=== PATIENT | male | born 1965 | race Caucasian/White ===

== ENCOUNTER 2018-05-26 05:30 | Day surgery (SDC) | payer MEDICARE, MEDICAID ==
[2018-05-24 16:00] LABS: BASOPHILS % (AUTO) 0.4 % (0-1); EOSINOPHILS # (AUTO) 0.2 X10'3 (0-0.9); EOSINOPHILS % (AUTO) 3.2 % (0-6); LYMPHOCYTES # (AUTO) 2.2 X10'3 (1.1-4.8); LYMPHOCYTES % (AUTO) 42.6 % (21-51); MEAN CORPUSCULAR HEMOGLOBIN 32.7 PG (27.0-31.0); MEAN CORPUSCULAR HGB CONC 34.1 % (33.0-36.5); MEAN CORPUSCULAR VOLUME 95.8 FL (78-98); MEAN PLATELET VOLUME 6.6 FL (7.4-10.4); MONOCYTES # (AUTO) 0.5 X10'3 (0-0.9); MONOCYTES % (AUTO) 9.5 % (2-12); NEUTROPHILS # (AUTO) 2.2 X10'3 (1.8-7.7); NEUTROPHILS % (AUTO) 44.3 % (42-75); PRE OP HEMATOCRIT 37.1 % (42.0-52.0); PRE OP HEMOGLOBIN 12.6 g/dL (14.0-17.9); PRE OP PLATELET COUNT 223 X10'3 (140-440); RED BLOOD COUNT 3.87 X10'6 (4.70-6.10); RED CELL DISTRIBUTION WIDTH 13.4 % (11.5-14.5)
[2018-05-24 16:15] LABS: ALBUMIN 3.9 G/DL (3.4-5.0); ALKALINE PHOSPHATASE 111 IU/L (46-116); BLOOD UREA NITROGEN 44 MG/DL (7-18); BUN/CREATININE RATIO 5.8 (5.4-32.0); CALCIUM 9.1 MG/DL (8.5-10.1); CHLORIDE 101 MMOL/L (99-107); CREATININE 7.55 MG/DL (0.60-1.10); PRE OP ALT 22 U/L (30-65); PRE OP ANION GAP 7 (8-16); PRE OP AST 12 U/L (10-37); PRE OP BILIRUB, TOTAL 0.3 MG/DL (0.0-1.0); PRE OP GLUCOSE 99 MG/DL (70-104); PRE OP POTASSIUM 4.6 MMOL/L (3.4-5.1); PRE OP SODIUM 138 MMOL/L (135-145); TOTAL CARBON DIOXIDE 29.7 MMOL/L (24-32); TOTAL PROTEIN 7.9 G/DL (6.4-8.2); eGFR 8 ML/MIN
[~2018-05-26] VITALS: Ht 170.2 cm; Wt 86.3 kg
[~2018-05-26 05:30] MED LIST: CALC667C5 PO; FA/V1TAB PO; FURO-150 PO; HYDR-3973 PO; HYDR-4069 PO; LIPA1CAP18 PO; LOSA50TA21 PO; OMEP20TA5 PO; ONDA4TAB9 SL; PRAM0.5T12 PO; SERT25TA PO; SODI650T29 PO; famotidine 20mg tablet PO ONE; normal saline 500ml IV soln 500 ML IV SCH
[2018-05-26] MEDS ORDERED: BUPIVAcaine/PF 2.5mg/ml (0.25%) 10ml vial ONE (06:26)
[2018-05-26] MEDS ORDERED: LIDOcaine 1% (10mg/ml) 2ml vial ONE (06:54)
[2018-05-26] MEDS ORDERED: cloNIDine hcl/PF 100mcg/ml inj ONE (07:05)
[2018-05-26] MEDS ORDERED: ROPIVAcaine 0.5% (5mg/ml) 30ml vial ONE (07:05)
[2018-05-26] MEDS ORDERED: dexamethasone sod phosphate 4mg/ml inj. ONE (07:10)
[2018-05-26] MEDS ORDERED: LIDOcaine 2% (20mg/ml) 5ml vial ONE (07:10)
[2018-05-26] MEDS ORDERED: propofol inj 20 ML IV ONE ×2 (07:10→07:46)
[2018-05-26] MEDS ORDERED: midazolam 2 mg/2 ml injection ONE (07:10)
[2018-05-26] MEDS ORDERED: fentaNYL/PF 50MCG/1 ML 2ML syringe ONE ×3 (07:10→08:48)
[2018-05-26] MEDS ORDERED: sevoflurane 250ml liquid IH ONE (07:14)
[2018-05-26] MEDS ORDERED: cefazolin/dext.iso 2gm/100 ML IV ONE (07:15)
[2018-05-26] MEDS ORDERED: ondansetron/PF 4mg/2ml inj IV PRN (07:20)
[2018-05-26] MEDS ORDERED: fentaNYL/PF 50MCG/1 ML 2ML syringe IV PRN ×2 (07:20)
[2018-05-26] MEDS ORDERED: enalaprilat dihydrate 2.5mg/2ml vial IV PRN (07:20)
[2018-05-26] MEDS ORDERED: hydrALAZINE 20mg/ml inj. IV PRN (07:20)
[2018-05-26] MEDS ORDERED: ringers solution, lacted 1,000 ML IV SCH (07:20)
[2018-05-26] MEDS ORDERED: morphine 4 MG/ML inj SYRINge IV PRN ×2 (07:20)
[2018-05-26] MEDS ORDERED: ondansetron/PF 4mg/2ml inj ONE (07:45)
[2018-05-26 07:55] VITALS: BP 117/66
[2018-05-26 07:58] VITALS: BP 117/66
[2018-05-26] MEDS ORDERED: hydrALAZINE 20mg/ml inj. IV ONE (08:21)
[2018-05-26] MEDS ORDERED: HYDROcodone/acetaminophen 10/325mg tab PO PRN (09:15)
[2018-05-26 09:18] VITALS: BP 145/67
[2018-05-26] MEDS ORDERED: proCHLORperazine 10 MG/2 ml inj IM ONE (09:25)
[2018-05-26 09:27] VITALS: BP 145/67
[2018-05-26 09:28] VITALS: BP 144/62
[2018-05-26 09:38] VITALS: BP 136/65
[2018-05-26] MEDS ORDERED: MESSAGE TO NURSING IV NR (10:00)
== END 2018-05-26 09:48 | disposition home or self-care (01) ==
LOC: PAS 05:30
PROVIDERS: ATTEND Orthopaedic Surgery
DX: M75.42 Impingement syndrome of left shoulder (principal); M19.012 Primary osteoarthritis, left shoulder; M25.712 Osteophyte, left shoulder; M75.52 Bursitis of left shoulder; I12.9 Hypertensive chronic kidney disease with stage 1 through stage 4 chronic kidney disease, or unspecified chronic kidney disease; N18.9 Chronic kidney disease, unspecified; K21.9 Gastro-esophageal reflux disease without esophagitis; F41.8 Other specified anxiety disorders; G89.29 Other chronic pain; G89.18 Other acute postprocedural pain; Z88.0 Allergy status to penicillin; Z79.891 Long term (current) use of opiate analgesic; Z87.891 Personal history of nicotine dependence; Z79.1 Long term (current) use of non-steroidal anti-inflammatories (NSAID); Z88.6 Allergy status to analgesic agent; Z88.5 Allergy status to narcotic agent; Z86.19 Personal history of other infectious and parasitic diseases; Z90.49 Acquired absence of other specified parts of digestive tract; Z99.2 Dependence on renal dialysis; Z98.890 Other specified postprocedural states; Z79.899 Other long term (current) drug therapy; Z83.42 Family history of familial hypercholesterolemia; Z83.3 Family history of diabetes mellitus; Z82.49 Family history of ischemic heart disease and other diseases of the circulatory system; Z83.1 Family history of other infectious and parasitic diseases; Z80.9 Family history of malignant neoplasm, unspecified
CPT/HCPCS: 29824; 29826; 36415; 64450; 71046; 80053; 85025; 85610; 85730; 93005; A4565; A6449; J0360; J0690; J0735; J0780; J1100; J2001; J2250; J2405; J2704; J2795; J3010; J3490; J7030; J7120; A7000

== ENCOUNTER 2019-01-10 06:37 | Day surgery (SDC) | payer MEDICARE, MEDICAID ==
[~2019-01-10] VITALS: Ht 170.2 cm; Wt 91.9 kg
[~2019-01-10 06:37] MED LIST changes: -LOSA50TA21 PO; +LOSA50TA64 PO; -SODI650T29 PO; -famotidine 20mg tablet PO ONE; -normal saline 500ml IV soln 500 ML IV SCH
[2019-01-10] MEDS ORDERED: normal saline 1000ml 1,000 ML IV PRN (07:00)
[2019-01-10] MEDS ORDERED: WARF5TAB PO (07:05)
[2019-01-10 07:09] VITALS: BP 92/53
[2019-01-10] MEDS ORDERED: PRAM0.5T3 PO (07:11)
[2019-01-10] MEDS ORDERED: DOCU-28 PO (07:11)
[2019-01-10 08:08] LABS: BASOPHILS % (AUTO) 0.5 % (0-1); EOSINOPHILS # (AUTO) 0.2 X10'3 (0-0.9); EOSINOPHILS % (AUTO) 2.7 % (0-6); HEMATOCRIT 36.1 % (42.0-52.0); HEMOGLOBIN 12.1 g/dl (14.0-17.9); LYMPHOCYTES # (AUTO) 1.9 X10'3 (1.1-4.8); LYMPHOCYTES % (AUTO) 30.7 % (21-51); MEAN CORPUSCULAR HEMOGLOBIN 36.1 PG (27.0-31.0); MEAN CORPUSCULAR HGB CONC 33.5 g/dL (33.0-36.5); MEAN PLATELET VOLUME 6.9 FL (7.4-10.4); MONOCYTES # (AUTO) 0.5 X10'3 (0-0.9); MONOCYTES % (AUTO) 8.3 % (2-12); NEUTROPHILS # (AUTO) 3.6 X10'3 (1.8-7.7); NEUTROPHILS % (AUTO) 57.8 % (42-75); PLATELET COUNT 231 X10'3 (140-440); RED BLOOD COUNT 3.34 X10'6 (4.70-6.10); RED CELL DISTRIBUTION WIDTH 18.9 % (11.5-14.5); WHITE BLOOD COUNT 6.3 X10'3 (4.5-11.0)
[2019-01-10 08:17] LABS: ALBUMIN 3.4 G/DL (3.4-5.0); ANION GAP 12 (8-16); BLOOD UREA NITROGEN 68 MG/DL (7-18); CALCIUM 10.3 MG/DL (8.5-10.1); CHLORIDE 100 MMOL/L (99-107); CREATININE 11.35 MG/DL (0.60-1.10); GLUCOSE 88 MG/DL (70-104); POTASSIUM 5.5 MMOL/L (3.5-5.1); SODIUM 138 MMOL/L (135-145); TOTAL CARBON DIOXIDE 25.9 MMOL/L (24-32); eGFR 5 ML/MIN
[2019-01-10] MEDS ORDERED: fentaNYL/PF 50MCG/1 ML 2ML syringe IV PRN (08:20)
[2019-01-10] MEDS ORDERED: heparin 1,000 units/ml 10ml inj ICATH ONE (08:20)
[2019-01-10] MEDS ORDERED: LIDOcaine 1%/PF 5ML 10 MG/ML VIAL SQ ONE (08:20)
[2019-01-10] MEDS ORDERED: LIDOcaine 1%/PF 5ML 10 MG/ML VIAL ONE (08:30)
[2019-01-10] MEDS ORDERED: clindamycin-Cleocin 900mg/D5W 50 ML IV ONE (08:30)
[2019-01-10] MEDS ORDERED: heparin 1,000unit/ml 10ml vial 10 ML ONE (08:34)
[2019-01-10] MEDS ORDERED: clindamycin 600mg/D5W 50ml 50 ML IV ONE (08:34)
[2019-01-10 09:16] VITALS: BP 105/48
[2019-01-10 09:23] LABS: ANISOCYTOSIS 2+; PLATELET ESTIMATE NORMAL
[2019-01-10 09:26] LABS: POLYCHROMASIA FEW
[2019-01-10 09:30] VITALS: BP 99/45
[2019-01-10] MEDS ORDERED: HYDROcodone/acetaminophen 10/325mg tab PO ONE (09:30)
[2019-01-10 09:45] VITALS: BP 92/60
[2019-01-10 10:00] VITALS: BP 96/63
== END 2019-01-10 10:10 | disposition home or self-care (01) ==
LOC: SSTAY O 06:37
PROVIDERS: ATTEND Radiology Diagnostic Radiology
DX: T82.49XA Other complication of vascular dialysis catheter, initial encounter (principal); Y83.8 Other surgical procedures as the cause of abnormal reaction of the patient, or of later complication, without mention of misadventure at the time of the procedure; N18.6 End stage renal disease; Z98.890 Other specified postprocedural states; Z88.0 Allergy status to penicillin; Z88.2 Allergy status to sulfonamides; Z88.8 Allergy status to other drugs, medicaments and biological substances; Z79.899 Other long term (current) drug therapy
CPT/HCPCS: 36415; 36581; 77001; 80048; 85025; 85610; C1750; J1644; J2001; J7030; A9270; C1769; J3490

== ENCOUNTER 2019-06-05 06:49 | Day surgery (SDC) | payer MEDICARE, MEDICAID ==
[~2019-06-05] VITALS: Ht 170.2 cm; Wt 95.3 kg
[~2019-06-05 06:49] MED LIST changes: +DOCU-28 PO; -FURO-150 PO; -HYDR-3973 PO; -HYDR-4069 PO; -LOSA50TA64 PO; -PRAM0.5T12 PO; +PRAM0.5T3 PO; +WARF5TAB PO
[2019-06-05] MEDS ORDERED: CYCL-1 PO (07:27)
[2019-06-05] MEDS ORDERED: FOLI0.4T2 PO (07:27)
[2019-06-05] MEDS ORDERED: diclofenac PO (07:27)
[2019-06-05] MEDS ORDERED: PRAM0.5T12 PO (07:27)
[2019-06-05] MEDS ORDERED: FLO0.1T PO (07:27)
[2019-06-05] MEDS ORDERED: SERT25TA PO (07:27)
[2019-06-05] MEDS ORDERED: CALC668T PEG (07:27)
[2019-06-05] MEDS ORDERED: MIDO10TA PO (07:27)
[2019-06-05] MEDS ORDERED: normal saline 1,000 ML IV SCH (07:35)
[2019-06-05] MEDS ORDERED: clindamycin 600mg/D5W 50ml 50 ML IV ONE (07:35)
[2019-06-05 07:53] VITALS: BP 79/46
[2019-06-05 08:09] LABS: BASOPHILS # (AUTO) 0.1 X10'3 (0-0.2); BASOPHILS % (AUTO) 1.1 % (0-1); EOSINOPHILS # (AUTO) 0.2 X10'3 (0-0.9); EOSINOPHILS % (AUTO) 3.3 % (0-6); HEMATOCRIT 44.4 % (42.0-52.0); HEMOGLOBIN 14.6 g/dl (14.0-17.9); LYMPHOCYTES % (AUTO) 28.1 % (21-51); MEAN CORPUSCULAR HEMOGLOBIN 35.5 PG (27.0-31.0); MEAN CORPUSCULAR HGB CONC 32.9 g/dL (33.0-36.5); MEAN CORPUSCULAR VOLUME 107.8 FL (78-98); MEAN PLATELET VOLUME 6.6 FL (7.4-10.4); MONOCYTES # (AUTO) 0.5 X10'3 (0-0.9); MONOCYTES % (AUTO) 7.7 % (2-12); NEUTROPHILS # (AUTO) 4.2 X10'3 (1.8-7.7); NEUTROPHILS % (AUTO) 59.8 % (42-75); PLATELET COUNT 302 X10'3 (140-440); RED BLOOD COUNT 4.12 X10'6 (4.70-6.10); RED CELL DISTRIBUTION WIDTH 20.1 % (11.5-14.5)
[2019-06-05] MEDS ORDERED: LIDOcaine 1%/PF 5ML 10 MG/ML VIAL ONE (08:13)
[2019-06-05] MEDS ORDERED: fentaNYL/PF 50MCG/1 ML 2ML syringe ONE ×2 (08:13→09:06)
[2019-06-05] MEDS ORDERED: heparin 1,000unit/ml 10ml vial 10 ML ONE (08:13)
[2019-06-05] MEDS ORDERED: midazolam 2 mg/2 ml injection ONE (08:13)
[2019-06-05] MEDS ORDERED: LIDOcaine 1%/PF 5ML 10 MG/ML VIAL SQ ONE (08:15)
[2019-06-05] MEDS ORDERED: fentaNYL/PF 50MCG/1 ML 2ML syringe IV PRN (08:15)
[2019-06-05] MEDS ORDERED: midazolam 2 mg/2 ml injection IV PRN (08:15)
[2019-06-05] MEDS ORDERED: LIDOcaine 1% (10mg/ml) 2ml vial SQ ONE (08:25)
[2019-06-05] MEDS ORDERED: heparin 1,000 units/ml 10ml inj ICATH ONE (08:25)
[2019-06-05] MEDS ORDERED: iohexol 300 MG/1 ML 50ml polymer ONE (09:05)
[2019-06-05 09:15] LABS: ANISOCYTOSIS 3+; PLATELET ESTIMATE NORMAL
[2019-06-05 09:30] VITALS: BP 79/41
[2019-06-05 09:45] VITALS: BP 130/52
[2019-06-05 10:00] VITALS: BP 118/59
[2019-06-05 10:15] VITALS: BP 124/35
== END 2019-06-05 10:30 | disposition home or self-care (01) ==
LOC: SSTAY O 06:49
PROVIDERS: ATTEND Radiology Vascular & Interventional Radiology
DX: T82.49XA Other complication of vascular dialysis catheter, initial encounter (principal); I12.9 Hypertensive chronic kidney disease with stage 1 through stage 4 chronic kidney disease, or unspecified chronic kidney disease; N18.9 Chronic kidney disease, unspecified; F32.9 Major depressive disorder, single episode, unspecified; Z87.891 Personal history of nicotine dependence; Z72.89 Other problems related to lifestyle; Z88.8 Allergy status to other drugs, medicaments and biological substances; Z88.0 Allergy status to penicillin; Z88.5 Allergy status to narcotic agent; Z79.899 Other long term (current) drug therapy; Z83.3 Family history of diabetes mellitus; Y83.8 Other surgical procedures as the cause of abnormal reaction of the patient, or of later complication, without mention of misadventure at the time of the procedure; Y92.89 Other specified places as the place of occurrence of the external cause
CPT/HCPCS: 36581; 37248; 75827; 85025; 99152; C1725; C1750; C1769; J1644; J2250; J3010; J7030; Q9967; J3490

== ENCOUNTER 2020-02-20 12:06 | Day surgery (SDC) | payer MEDICARE, MEDICAID ==
[2020-02-20] VITALS (7 sets, daily range): BP systolic 93–128; BP diastolic 48–66
[~2020-02-20] VITALS: Ht 170.2 cm; Wt 84.8 kg
[~2020-02-20 12:06] MED LIST changes: -CALC667C5 PO; +CALC668T PEG; +CYCL-1 PO; +FLO0.1T PO; +FOLI0.4T2 PO; +MIDO10TA PO; +PRAM0.5T12 PO; -WARF5TAB PO; +diclofenac PO
[2020-02-20] MEDS ORDERED: normal saline 1000ml 1,000 ML IV SCH (12:30)
[2020-02-20] MEDS ORDERED: KAY15L PO (13:32)
[2020-02-20] MEDS ORDERED: ESCI10TA PO (13:32)
[2020-02-20] MEDS ORDERED: LEVO50TA8 PO (13:32)
[2020-02-20] MEDS ORDERED: COU7.5T PO (13:32)
[2020-02-20] MEDS ORDERED: LIDO700A32 TOP (13:32)
[2020-02-20] MEDS ORDERED: heparin 1,000unit/ml 10ml vial 10 ML ONE (14:00)
[2020-02-20] MEDS ORDERED: LIDOcaine 1%/PF 5ML 10 MG/ML VIAL ONE (14:00)
[2020-02-20] MEDS ORDERED: fentaNYL/PF 50MCG/1 ML 2ML syringe ONE (14:11)
== END 2020-02-20 16:25 | disposition home or self-care (01) ==
LOC: SSTAY O 12:06
PROVIDERS: ATTEND Radiology Diagnostic Radiology
DX: N18.9 Chronic kidney disease, unspecified (principal); Z88.5 Allergy status to narcotic agent; Z88.0 Allergy status to penicillin; Z79.899 Other long term (current) drug therapy; Z83.3 Family history of diabetes mellitus; Z83.49 Family history of other endocrine, nutritional and metabolic diseases; Z80.8 Family history of malignant neoplasm of other organs or systems
CPT/HCPCS: 36415; 36556; 76937; 77001; 85610; C1769; C1894; J1644; J3010; A9270

== ENCOUNTER 2020-02-22 13:54 | Emergency (ER) | payer MEDICARE, MEDICAID ==
[~2020-02-22] VITALS: Ht 170.2 cm; Wt 82.7 kg
[~2020-02-22 13:54] MED LIST changes: -CALC668T PEG; +COU7.5T PO; -CYCL-1 PO; +ESCI10TA PO; +KAY15L PO; +LEVO50TA8 PO; +LIDO700A32 TOP; -PRAM0.5T12 PO; -PRAM0.5T3 PO; -SERT25TA PO; -diclofenac PO
[2020-02-22] MEDS ORDERED: HYDROcodone/acetaminophen 5mg/325mg tablet PO ONE (16:25)
[2020-02-22] MEDS ORDERED: OXYC-150 PO (17:44)
[2020-02-22 17:59] VITALS: BP 110/68
== END 2020-02-22 18:03 | disposition home or self-care (01) ==
LOC: ER 13:55
DX: T85.848A Pain due to other internal prosthetic devices, implants and grafts, initial encounter (principal); G89.18 Other acute postprocedural pain; M79.602 Pain in left arm; M25.512 Pain in left shoulder; I10 Essential (primary) hypertension; R07.9 Chest pain, unspecified; Z86.19 Personal history of other infectious and parasitic diseases; Z90.49 Acquired absence of other specified parts of digestive tract; Z88.5 Allergy status to narcotic agent; Z88.0 Allergy status to penicillin; Z79.899 Other long term (current) drug therapy; Z99.2 Dependence on renal dialysis
CPT/HCPCS: 70490; 99284; 99285

== ENCOUNTER 2020-02-27 06:29 | Day surgery (SDC) | payer MEDICARE, MEDICAID ==
[~2020-02-27] VITALS: Ht 170.2 cm; Wt 91.2 kg
[~2020-02-27 06:29] MED LIST changes: +OXYC-150 PO
[2020-02-27] MEDS ORDERED: normal saline 1000ml 1,000 ML IV PRN (06:55)
[2020-02-27 07:18] VITALS: BP 151/81
[2020-02-27] MEDS ORDERED: midazolam 2 mg/2 ml injection ONE ×2 (08:50→09:05)
[2020-02-27] MEDS ORDERED: fentaNYL/PF 50MCG/1 ML 2ML syringe ONE ×3 (08:50→09:23)
[2020-02-27] MEDS ORDERED: LIDOcaine 1%/PF 5ML 10 MG/ML VIAL ONE (08:51)
[2020-02-27] MEDS ORDERED: heparin 1,000unit/ml 10ml vial 10 ML ONE (09:07)
[2020-02-27 10:00] VITALS: BP 124/74
[2020-02-27 10:15] VITALS: BP 105/65
[2020-02-27 10:30] VITALS: BP 103/59
[2020-02-27 10:45] VITALS: BP 90/55
== END 2020-02-27 11:00 | disposition home or self-care (01) ==
LOC: SSTAY O 06:29
PROVIDERS: ATTEND Radiology Diagnostic Radiology
DX: T82.590A Other mechanical complication of surgically created arteriovenous fistula, initial encounter (principal); Z88.0 Allergy status to penicillin; Z88.5 Allergy status to narcotic agent; Z88.8 Allergy status to other drugs, medicaments and biological substances; Z79.899 Other long term (current) drug therapy; Z79.01 Long term (current) use of anticoagulants; Z83.49 Family history of other endocrine, nutritional and metabolic diseases; Z83.3 Family history of diabetes mellitus; Z80.9 Family history of malignant neoplasm, unspecified; Y83.2 Surgical operation with anastomosis, bypass or graft as the cause of abnormal reaction of the patient, or of later complication, without mention of misadventure at the time of the procedure; Y92.89 Other specified places as the place of occurrence of the external cause
CPT/HCPCS: 36415; 36558; 76937; 77001; 85610; 99152; 99153; C1750; C1769; C1894; J1644; J2250; J3010; A9270

== ENCOUNTER → 2020-10-19 | Emergency (ER) | payer MEDICARE, MEDICAID ==
[~2020-10-19] VITALS: Ht 175.3 cm; Wt 86.4 kg
[2020-10-19 15:40] VITALS: BP 185/88
[2020-10-19 16:45] LABS: BASOPHILS # (AUTO) 0.1 X10'3 (0-0.2); EOSINOPHILS % (AUTO) 0 % (0-6); HEMATOCRIT 41.6 % (42.0-52.0); LYMPHOCYTES % (AUTO) 12.1 % (21-51); MEAN CORPUSCULAR HEMOGLOBIN 33.1 PG (27.0-31.0); MEAN CORPUSCULAR HGB CONC 33.7 g/dL (33.0-36.5); MEAN CORPUSCULAR VOLUME 98.1 FL (78-98); MEAN PLATELET VOLUME 7.8 FL (7.4-10.4); MONOCYTES # (AUTO) 0.3 X10'3 (0-0.9); MONOCYTES % (AUTO) 3.2 % (2-12); NEUTROPHILS # (AUTO) 7.2 X10'3 (1.8-7.7); NEUTROPHILS % (AUTO) 83.7 % (42-75); PLATELET COUNT 312 X10'3 (140-440); RED BLOOD COUNT 4.24 X10'6 (4.70-6.10); WHITE BLOOD COUNT 8.7 X10'3 (4.5-11.0)
[2020-10-19 17:05] LABS: ALANINE AMINOTRANSFERASE 19 U/L (12-78); ALBUMIN 4.5 G/DL (3.4-5.0); ALBUMIN/GLOBULIN RATIO 1.1 (1.1-1.5); ALKALINE PHOSPHATASE 101 IU/L (46-116); AMYLASE 178 U/L (25-115); ANION GAP 14 (8-16); ASPARTATE AMINO TRANSFERASE 9 U/L (10-37); BILIRUBIN,TOTAL 0.5 MG/DL (0.1-1.0); BLOOD UREA NITROGEN 60 MG/DL (7-18); BUN/CREATININE RATIO 5.1 (5.4-32.0); CHLORIDE 99 MMOL/L (99-107); GLUCOSE 130 MG/DL (70-104); LIPASE 361 U/L (73-393); POTASSIUM 4.9 MMOL/L (3.5-5.1); SODIUM 138 MMOL/L (135-145); TOTAL CARBON DIOXIDE 24.6 MMOL/L (24-32); TOTAL PROTEIN 8.7 G/DL (6.4-8.2); eGFR 4 ML/MIN
--- NOTE | 2020-10-19 18:13 | NUR ---
PT INFORMS REGISTRATION THAT HE IS LEAVING.
--- NOTE | 2020-10-19 18:59 | NUR ---
Attempted to contact via phone with no success.
--- NOTE | 2020-10-19 19:55 | NUR ---
Attempted to contact via phone with no success.
== END | disposition left against medical advice (07) ==
LOC: ER 15:17
DX: K85.90 Acute pancreatitis without necrosis or infection, unspecified (principal)
CPT/HCPCS: 36415; 80053; 82150; 83690; 85025

== ENCOUNTER 2021-03-18 06:33 | Day surgery (SDC) | payer MEDICARE, MEDICAID ==
[~2021-03-18] VITALS: Ht 175.3 cm; Wt 93.2 kg
[~2021-03-18 06:33] MED LIST changes: -FOLI0.4T2 PO; +FOLI0.4T6 PO
[2021-03-18 07:12] VITALS: BP 101/71
[2021-03-18] MEDS ORDERED: DIAZ5TAB PO (07:18)
[2021-03-18] MEDS ORDERED: elavil PO (07:19)
[2021-03-18 07:53] LABS: BASOPHILS # (AUTO) 0.1 X10'3 (0-0.2); BASOPHILS % (AUTO) 1.1 % (0-1); EOSINOPHILS # (AUTO) 0.2 X10'3 (0-0.9); EOSINOPHILS % (AUTO) 3.3 % (0-6); HEMATOCRIT 39.4 % (42.0-52.0); HEMOGLOBIN 13.2 g/dl (14.0-17.9); LYMPHOCYTES # (AUTO) 1.6 X10'3 (1.1-4.8); LYMPHOCYTES % (AUTO) 27.7 % (21-51); MEAN CORPUSCULAR HEMOGLOBIN 33.8 PG (27.0-31.0); MEAN CORPUSCULAR HGB CONC 33.5 g/dL (33.0-36.5); MEAN PLATELET VOLUME 6.4 FL (7.4-10.4); MONOCYTES # (AUTO) 0.5 X10'3 (0-0.9); MONOCYTES % (AUTO) 8.3 % (2-12); NEUTROPHILS # (AUTO) 3.5 X10'3 (1.8-7.7); NEUTROPHILS % (AUTO) 59.6 % (42-75); PLATELET COUNT 237 X10'3 (140-440); WHITE BLOOD COUNT 5.9 X10'3 (4.5-11.0)
[2021-03-18] MEDS ORDERED: LIDOcaine 1%/PF 5ML 10 MG/ML VIAL ONE ×3 (08:46→14:28)
[2021-03-18] MEDS ORDERED: fentaNYL/PF 50MCG/1 ML 2ML syringe ONE ×3 (08:47→14:23)
[2021-03-18] MEDS ORDERED: midazolam 1 mg/ML 2ml injection ONE ×4 (08:47→14:42)
[2021-03-18] MEDS ORDERED: iohexol 300mg/ml 100ml inj. ONE (08:47)
[2021-03-18] MEDS ORDERED: heparin 1,000 UNITS/NS 500ml 500 ML ONE (08:47)
[2021-03-18 08:55] LABS: ALBUMIN 3.4 G/DL (3.4-5.0); ANION GAP 20 (8-16); BLOOD UREA NITROGEN 85 MG/DL (7-18); BUN/CREATININE RATIO 5.7 (5.4-32.0); CHLORIDE 101 MMOL/L (99-107); GLUCOSE 84 MG/DL (70-104); SODIUM 142 MMOL/L (135-145); TOTAL CARBON DIOXIDE 21.1 MMOL/L (24-32); eGFR 3 ML/MIN
[2021-03-18 09:05] LABS: POTASSIUM 7.4 MMOL/L (3.5-5.1)
[2021-03-18] MEDS ORDERED: dextrose 50%-water 50ml dispensing syringe IV ONE (09:15)
[2021-03-18] MEDS ORDERED: albuterol 2.5 MG/3 ML nebule NEB ONE (09:15)
[2021-03-18] MEDS ORDERED: CALCIUM GLUC 1gm/50ml NACL,iso 50 ML IV ONE (09:15)
[2021-03-18] MEDS ORDERED: insulin regular, human U-100 3ml vial - multi-dose IV ONE (09:15)
[2021-03-18] MEDS ORDERED: sodium bicarbonate (8.4%) 1 mEq/ml syringe IV ONE (09:15)
[2021-03-18] MEDS ORDERED: SODIUM ZIRCONIUM CYCLOSILICATE 10 GM POWD.PACK PO ONE (09:35)
[2021-03-18] MEDS ORDERED: diazepam 5mg tablet PO ONE (10:25)
[2021-03-18] MEDS ORDERED: dextrose 50%-water 50ml dispensing syringe IV PRN ×2 (11:00)
[2021-03-18] MEDS ORDERED: heparin 1,000unit/ml 10ml vial 10 ML ONE (13:42)
[2021-03-18] MEDS ORDERED: ondansetron/PF 4mg/2ml inj ONE (13:53)
[2021-03-18] MEDS ORDERED: iohexol 300 MG/1 ML 50ml polymer ONE (14:14)
[2021-03-18 15:05] VITALS: BP 89/54
[2021-03-18] MEDS ORDERED: normal saline 1000ml 1,000 ML IV SCH (15:05)
[2021-03-18 15:20] VITALS: BP 90/53
[2021-03-18 15:35] VITALS: BP 116/46
[2021-03-18 15:50] VITALS: BP 111/58
--- NOTE | 2021-03-18 16:28 | NUR ---
Pt rec'd protocol treatment for K+ 7.4 prior to procedure-VSS throughout treatment-pt asymptomatic-redraw pending post treatment
[2021-03-19] MEDS ORDERED: SODIUM ZIRCONIUM CYCLOSILICATE 10 GM POWD.PACK PO SCH (08:00)
== END 2021-03-18 16:33 | disposition home or self-care (01) ==
LOC: SSTAY O 06:33
PROVIDERS: ATTEND Radiology Diagnostic Radiology
DX: T82.868A Thrombosis due to vascular prosthetic devices, implants and grafts, initial encounter (principal); N18.6 End stage renal disease; E87.5 Hyperkalemia; F17.210 Nicotine dependence, cigarettes, uncomplicated; F12.90 Cannabis use, unspecified, uncomplicated; Z88.0 Allergy status to penicillin; Z88.5 Allergy status to narcotic agent; Z88.8 Allergy status to other drugs, medicaments and biological substances; Z79.899 Other long term (current) drug therapy; Z79.01 Long term (current) use of anticoagulants; Z99.2 Dependence on renal dialysis; Z90.49 Acquired absence of other specified parts of digestive tract; Z80.8 Family history of malignant neoplasm of other organs or systems; Z83.3 Family history of diabetes mellitus; Z83.49 Family history of other endocrine, nutritional and metabolic diseases; Y83.2 Surgical operation with anastomosis, bypass or graft as the cause of abnormal reaction of the patient, or of later complication, without mention of misadventure at the time of the procedure; Y92.89 Other specified places as the place of occurrence of the external cause
CPT/HCPCS: 36415; 36558; 76937; 77001; 80048; 82948; 84132; 85025; 85610; 94640; 99152; 99153; C1750; C1769; C1894; J1644; J2250; J2405; J3010; Q9967; J1815

== ENCOUNTER 2021-03-23 06:31 | Day surgery (SDC) | payer MEDICARE, MEDICAID ==
[2021-03-23] VITALS (8 sets, daily range): BP systolic 92–131; BP diastolic 55–71
[~2021-03-23] VITALS: Ht 172.7 cm; Wt 94.8 kg
[~2021-03-23 06:31] MED LIST changes: +DIAZ5TAB PO; -DOCU-28 PO; -KAY15L PO; -OXYC-150 PO; +elavil PO
[2021-03-23] MEDS ORDERED: normal saline 1000ml 1,000 ML IV SCH (07:00)
[2021-03-23] MEDS ORDERED: tPA-cathflo 2 MG/2 ml IV flush ONE (08:13)
[2021-03-23 08:28] LABS: ALBUMIN 3.4 G/DL (3.4-5.0); ANION GAP 15 (8-16); BLOOD UREA NITROGEN 72 MG/DL (7-18); BUN/CREATININE RATIO 6.4 (5.4-32.0); CALCIUM 8.4 MG/DL (8.5-10.1); CHLORIDE 101 MMOL/L (99-107); CREATININE 11.24 MG/DL (0.60-1.10); GLUCOSE 87 MG/DL (70-104); SODIUM 135 MMOL/L (135-145); TOTAL CARBON DIOXIDE 19.5 MMOL/L (24-32); eGFR 5 ML/MIN
[2021-03-23 08:29] LABS: POTASSIUM 6.5 MMOL/L (3.5-5.1)
--- NOTE | 2021-03-23 08:30 | NUR ---
Critical result reported to MD, no new orders given.
[2021-03-23 08:37] LABS: BASOPHILS # (AUTO) 0.1 X10'3 (0-0.2); BASOPHILS % (AUTO) 0.9 % (0-1); EOSINOPHILS # (AUTO) 0.3 X10'3 (0-0.9); HEMATOCRIT 38.6 % (42.0-52.0); HEMOGLOBIN 12.6 g/dl (14.0-17.9); LYMPHOCYTES # (AUTO) 1.7 X10'3 (1.1-4.8); LYMPHOCYTES % (AUTO) 24.1 % (21-51); MEAN CORPUSCULAR HEMOGLOBIN 33.6 PG (27.0-31.0); MEAN CORPUSCULAR HGB CONC 32.7 g/dL (33.0-36.5); MEAN PLATELET VOLUME 6.5 FL (7.4-10.4); MONOCYTES # (AUTO) 0.7 X10'3 (0-0.9); MONOCYTES % (AUTO) 10.4 % (2-12); NEUTROPHILS # (AUTO) 4.2 X10'3 (1.8-7.7); NEUTROPHILS % (AUTO) 60.6 % (42-75); PLATELET COUNT 235 X10'3 (140-440); RED BLOOD COUNT 3.75 X10'6 (4.70-6.10); RED CELL DISTRIBUTION WIDTH 17.5 % (11.5-14.5)
[2021-03-23] MEDS ORDERED: LORazepam 0.5 MG tablet PO PRN (08:40)
--- NOTE | 2021-03-23 10:49 | NUR ---
Pt resting comfortably in bed, significant other at bedside.
--- NOTE | 2021-03-23 11:04 | NUR ---
Problems reprioritized. Patient report given, questions answered & plan of care reviewed with Richa NORTH.
[2021-03-23] MEDS ORDERED: fentaNYL/PF 50MCG/1 ML 2ML syringe ONE ×3 (11:13→11:49)
[2021-03-23] MEDS ORDERED: heparin 1,000 UNITS/NS 500ml 500 ML ONE (11:13)
[2021-03-23] MEDS ORDERED: LIDOcaine 1%/PF 5ML 10 MG/ML VIAL ONE (11:13)
[2021-03-23] MEDS ORDERED: iohexol 300mg/ml 100ml inj. ONE (11:13)
[2021-03-23] MEDS ORDERED: midazolam 1 mg/ML 2ml injection ONE ×4 (11:13→12:06)
[2021-03-23] MEDS ORDERED: diphenhydrAMINE 50 mg/ml inj ONE (11:53)
[2021-03-23] MEDS ORDERED: heparin 1,000unit/ml 10ml vial 10 ML ONE (12:03)
== END 2021-03-23 15:55 | disposition home or self-care (01) ==
LOC: SSTAY O 06:31
PROVIDERS: ATTEND Radiology Vascular & Interventional Radiology
DX: T82.868A Thrombosis due to vascular prosthetic devices, implants and grafts, initial encounter (principal); N18.6 End stage renal disease; Z99.2 Dependence on renal dialysis; Z88.0 Allergy status to penicillin; Z88.8 Allergy status to other drugs, medicaments and biological substances; Z88.5 Allergy status to narcotic agent; F17.210 Nicotine dependence, cigarettes, uncomplicated; F12.90 Cannabis use, unspecified, uncomplicated; Z72.89 Other problems related to lifestyle; Z79.899 Other long term (current) drug therapy; Z79.01 Long term (current) use of anticoagulants; Z90.49 Acquired absence of other specified parts of digestive tract; Z83.3 Family history of diabetes mellitus; Z82.49 Family history of ischemic heart disease and other diseases of the circulatory system; Z80.8 Family history of malignant neoplasm of other organs or systems; Y83.2 Surgical operation with anastomosis, bypass or graft as the cause of abnormal reaction of the patient, or of later complication, without mention of misadventure at the time of the procedure; Y92.89 Other specified places as the place of occurrence of the external cause
CPT/HCPCS: 36415; 36905; 80048; 85025; 85610; 99152; 99153; C1725; C1769; C1894; J1200; J1644; J2250; J2997; J3010; Q9967

== ENCOUNTER 2023-01-17 20:52 | Emergency (ER) | payer MEDICARE, MEDICAID ==
[~2023-01-17] VITALS: Ht 175.3 cm; Wt 88.6 kg
[~2023-01-17 20:52] MED LIST changes: +ACET-1015 PO; +ASPI-611 PO; +ATOR40TA PO; -COU7.5T PO; +DIAZ10TA PO; -DIAZ5TAB PO; +DOCU100C40 PO; -FA/V1TAB PO; +FAMO20TA8 PO; -FOLI0.4T6 PO; -LIDO700A32 TOP; +MYCO250C46 PO; +NALO4SPR BOTHNARES; -OMEP20TA5 PO; +ONDA-103 PO; -ONDA4TAB9 SL; +OXYC5CAP19 PO; +POLY17PO10 PO; +SENN-263 PO; +SEVE800T8 PO; +SULF-14 PO; +TACR1CAP2 PO; +TACR1CAP24 PO; +VALG450T13 PO; +WARF-65 PO; -elavil PO
[2023-01-17] MEDS ORDERED: ondansetron 4mg rapidly disintigrating tab PO ONE (22:20)
[2023-01-17] MEDS ORDERED: morphine 10mg/ml inj. IM ONE (22:20)
[2023-01-17 23:00] VITALS: BP 118/67
== END 2023-01-17 23:03 | disposition home or self-care (01) ==
LOC: ER 20:53
DX: G89.29 Other chronic pain (principal); M54.59 Other low back pain; F12.10 Cannabis abuse, uncomplicated; N18.6 End stage renal disease; Z90.49 Acquired absence of other specified parts of digestive tract; Z88.0 Allergy status to penicillin; Z88.8 Allergy status to other drugs, medicaments and biological substances; Z79.899 Other long term (current) drug therapy; Z88.5 Allergy status to narcotic agent; Z79.82 Long term (current) use of aspirin
CPT/HCPCS: 96372; 99283; J2274

== ENCOUNTER 2023-12-13 13:46 | Outpatient (CLI) | payer MEDICARE, MEDICAID ==
[~2023-12-13 13:46] MED LIST changes: +DIAZ-546 PO; -DIAZ10TA PO
[2023-12-13 15:30] LABS: BASOPHILS # (AUTO) 0.1 X10'3 (0-0.2); BASOPHILS % (AUTO) 0.9 % (0-1); EOSINOPHILS % (AUTO) 0.3 % (0-6); LYMPHOCYTES % (AUTO) 12.1 % (21-51); MEAN CORPUSCULAR HEMOGLOBIN 31.2 PG (27.0-31.0); MEAN CORPUSCULAR HGB CONC 32.8 g/dL (33.0-36.5); MEAN CORPUSCULAR VOLUME 95.2 FL (78-98); MEAN PLATELET VOLUME 6.5 FL (7.4-10.4); MONOCYTES # (AUTO) 0.6 X10'3 (0-0.9); NEUTROPHILS # (AUTO) 6.6 X10'3 (1.8-7.7); NEUTROPHILS % (AUTO) 79.7 % (42-75); PRE OP HEMATOCRIT 34.3 % (42.0-52.0); PRE OP HEMOGLOBIN 11.2 g/dL (14.0-17.9); PRE OP PLATELET COUNT 286 X10'3 (140-440); PRE OP WHITE BLOOD COUNT 8.3 10'3 (4.8-10.8); RED BLOOD COUNT 3.61 X10'6 (4.70-6.10); RED CELL DISTRIBUTION WIDTH 20.4 % (11.5-14.5)
[2023-12-13 15:46] LABS: ALBUMIN 3.4 G/DL (3.4-5.0); ALBUMIN/GLOBULIN RATIO 0.8 (1.1-1.5); ALKALINE PHOSPHATASE 185 IU/L (46-116); BLOOD UREA NITROGEN 51 MG/DL (7-18); BUN/CREATININE RATIO 4.4 (10.0-20.0); CALCIUM 9.4 MG/DL (8.5-10.1); CHLORIDE 96 MMOL/L (99-107); CREATININE 11.66 MG/DL (0.60-1.10); PRE OP ALT 26 U/L (30-65); PRE OP ANION GAP 9 (8-16); PRE OP AST 11 U/L (10-37); PRE OP BILIRUB, TOTAL 0.4 MG/DL (0.0-1.0); PRE OP GLUCOSE 121 MG/DL (70-104); PRE OP SODIUM 132 MMOL/L (135-145); TOTAL CARBON DIOXIDE 26.8 MMOL/L (24-32); TOTAL PROTEIN 7.6 G/DL (6.4-8.2); eGFR 4 ML/MIN
[2023-12-13 16:00] LABS: ANISOCYTOSIS 3+; PLATELET ESTIMATE NORMAL; POLYCHROMASIA FEW; STOMATOCYTES FEW
[2023-12-13 16:01] LABS: BURR CELLS FEW; ELLIPTOCYTES FEW
[2023-12-13] MEDS ORDERED: MIDO5TAB4 PO (17:34)
[2023-12-13] MEDS ORDERED: NORT10CA81 PO (17:34)
[2023-12-13] MEDS ORDERED: HYDR-4298 PO (17:34)
[2023-12-13] MEDS ORDERED: ACET-75 PO (17:34)
[2023-12-13] MEDS ORDERED: PRE5T PO (17:34)
[2023-12-13] MEDS ORDERED: CHOL20002 PO (17:34)
[2023-12-13] MEDS ORDERED: SERT-433 PO (17:34)
[2023-12-13] MEDS ORDERED: ALLO100T PO (17:34)
[2023-12-13] MEDS ORDERED: LEVO100T PO (17:34)
[2023-12-13] MEDS ORDERED: PRAM0.5T12 PO (17:34)
[2023-12-13] MEDS ORDERED: WARF4TAB69 PO (17:38)
[2023-12-13] MEDS ORDERED: WARF-55 PO (17:38)
[2023-12-13] MEDS ORDERED: CALC0.2536 PO (17:38)
== END 2023-12-13 23:59 | disposition home or self-care (01) ==
LOC: LAB 13:46 → EDSTATUS 12-20 07:30
PROVIDERS: ATTEND Orthopaedic Surgery
DX: Z01.818 Encounter for other preprocedural examination (principal); M75.41 Impingement syndrome of right shoulder; M75.42 Impingement syndrome of left shoulder; E03.9 Hypothyroidism, unspecified; E78.5 Hyperlipidemia, unspecified; K21.9 Gastro-esophageal reflux disease without esophagitis; I20.9 Angina pectoris, unspecified; M10.9 Gout, unspecified; I25.2 Old myocardial infarction; G62.9 Polyneuropathy, unspecified; M19.90 Unspecified osteoarthritis, unspecified site; Z79.01 Long term (current) use of anticoagulants; Z79.82 Long term (current) use of aspirin; Z79.890 Hormone replacement therapy; Z79.891 Long term (current) use of opiate analgesic; Z79.899 Other long term (current) drug therapy; Z90.49 Acquired absence of other specified parts of digestive tract; Z98.890 Other specified postprocedural states; Z88.0 Allergy status to penicillin; Z88.5 Allergy status to narcotic agent; Z88.8 Allergy status to other drugs, medicaments and biological substances
CPT/HCPCS: 36415; 80053; 85008; 85025; 93005